=== PATIENT | male | born 1985 | race Caucasian/White ===

== ENCOUNTER 2020-10-18 14:23 | Emergency (ER) | payer OTHER ==
[~2020-10-18] VITALS: Ht 203.2 cm; Wt 132.0 kg
[~2020-10-18 14:23] MED LIST: AMOX875T PO
[2020-10-18 14:38] VITALS: BP 146/88
[2020-10-18] MEDS ORDERED: HYDROcodone/APAP 5/325MG 1 TAB TABLET PO ONE (14:45)
--- NOTE | 2020-10-18 14:50 | PHYS DOC ---
Past History Past Medical History: Other (LANI TRINH APRN) Past Surgical History: Tonsillectomy, Other (LANI TRINH APRN) Alcohol Use: Occasionally Drug Use: None (LANI TRINH APRN) General Adult EDM: Chief Complaint: BACK PAIN OR INJURY HPI: HPI: Patient is a 35-year-old male who presents to the ER today for generalized back pain. Patient reports that he injured his back at work on August 30 and was released to return to work on by Worker's Comp. He went back to work on Tuesday and he was supposed to be started on light duty but they started him on full duty and he has been working long hours and has had soreness in his back that he rates 8 out of 10. The pain does not radiate. He did not have any injury. 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 He denies any loss of bowel or bladder, saddle anesthesias, numbness or tingling in extremities. Patient states that in order for him to leave work early today he needed to be seen ER and have a work note. (LANI TRINH APRN) Review of Systems: Review of Systems: Constitutional: Denies fever or chills Eyes: Denies change in visual acuity HENT: Denies nasal congestion or sore throat Respiratory: Denies cough or shortness of breath Cardiovascular: Denies chest pain or edema GI: Denies abdominal pain, nausea, vomiting, bloody stools or diarrhea : Denies dysuria Musculoskeletal: Denies back pain or joint pain Integument: Denies rash Neurologic: Denies headache, focal weakness or sensory changes Endocrine: Denies polyuria or polydipsia Lymphatic: Denies swollen glands Psychiatric: Denies depression or anxiety (LANI TRINH APRN) Allergies: Allergies: Allergies Coded Allergies Type Severity Reaction Last Updated Verified No Known Drug Allergies 08/16/14 No (LANI TRINH APRN) Physical Exam: PE: Constitutional: Well developed, well nourished, no acute distress, non-toxic appearance. [] HENT: Normocephalic, atraumatic Eyes: PERRL, conjunctiva normal, no discharge. [] Neck: Normal range of motion, no bony spinal tenderness, supple, no stridor. [] Cardiovascular: Normal peripheral perfusion Lungs & Thorax: Normal work of breathing, no tachypnea Abdomen: Bowel sounds normal, soft, no tenderness, no masses, no pulsatile masses. [] Skin: Warm, dry, no erythema, no rash. [] Back: No bony spinal tenderness, no CVA tenderness. [] Extremities: No tenderness, no cyanosis, no clubbing, ROM intact, no edema. [] Neurologic: Alert and oriented X 3, normal motor function, normal sensory function, no focal deficits noted. [] Psychologic: Affect normal, judgement normal, mood normal. [] (LANI TRINH APRN) Current Patient Data: Vital Signs: Vital Signs Date Time Temp Pulse Resp B/P (MAP) Pulse Ox O2 Delivery O2 Flow Rate FiO2 10/18/20 14:38 98.5 71 16 146/88 97 Room Air (LANI TRINH APRN) EKG: EKG: [] (LANI TRINH APRN) Radiology/Procedures: Radiology/Procedures: [] (LANI TRINH APRN) Heart Score: C/O Chest Pain: No Risk Factors: Risk Factors: DM, Current or recent (<one month) smoker, HTN, HLP, family history of CAD, obesity. Risk Scores: Score 0 - 3: 2.5% MACE over next 6 weeks - Discharge Home Score 4 - 6: 20.3% MACE over next 6 weeks - Admit for Clinical Observation Score 7 - 10: 72.7% MACE over next 6 weeks - Early Invasive Strategies (LANI TRINH APRN) Course & Med Decision Making: Course & Med Decision Making Pertinent Labs and Imaging studies reviewed. (See chart for details) [] Patient is a 35-year-old male coming in for chronic generalized back pain from a previous injury. Patient denies any new injury. Patient was treated in the ER for his pain. Patient was given work note for leaving work early today. Patient advised to take Tylenol/ibuprofen for his pain at home. Patient advised to follow-up with his work comp doctor regarding his back pain. Patient is agreeable to care plan. (LANI TRINH APRN) Dragon Disclaimer: Dragon Disclaimer: This electronic medical record was generated, in whole or in part, using a voice recognition dictation system. (LANI TRINH APRN) Departure Departure: Impression: Primary Impression: Back pain Qualified Codes: M54.9 - Dorsalgia, unspecified; G89.29 - Other chronic pain Disposition: 01 HOME / SELF CARE / HOMELESS Condition: GOOD Referrals: WAYNE HARO MD (PCP) Patient Instructions: Back Pain, Adult Additional Instructions: You were seen in the ER today for generalized back soreness from a previous work injury. You were treated for your pain in the ER. As we discussed, you need to follow-up with your work comp doctor regarding further treatment for your back pain. You were given a work note to return to light duty and increase activity as tolerated. Continue taking Tylenol or ibuprofen for pain. If you develop worsening of your back pain, loss of bowel or bladder, numbness or tingling in your extremities please return to the ER immediately. EMERGENCY DEPARTMENT GENERAL DISCHARGE INSTRUCTIONS Thank you for coming to [facility] (ED) today and trusting us with you care. We trust that you had a positivie experience in our Emergency Department. If you wish to speak to the department management, you may call the director at [phone]. YOUR FOLLOW UP INSTRUCTIONS ARE FOLLOWS: 1. Do you have a private Doctor? If you do not have a private doctor, please ask for a resource list of physicians or clinics that may be able to assist you with follow up care. 2. The Emergency Physician has interpreted your x-rays. The X-Ray specialist will also review them. If there is a change in the findings, you will be notified in 48 hours when at all possible. 3. A lab test or culture has been done, your results will be reviewed and you will be notified if you need a change in treatment. ADDITIONAL INSTRUCTIONS AND INFORMATION: 1. Your care today has been supervised by a physician who is specially trained in emergency care. Many problems require more than one evaluation for a complete diagnosis and treatment. We recommend that you schedule your follow up appointment as recommended to ensure complete treatment of you illness or injury. If you are unable to obtain follow up care and continue to have a problem, or if your condition worsens, we recommend that you return to the ED. 2. We are not able to safely determine your condition over the phone nor are we able to give sound medical advice over the phone. For these safety reasons, if you call for medical advice we will ask you to come to the ED for further evaluation. 3. If you have any questions regarding these discharge instructions please call the ED at [phone]. SAFETY INFORMATION: In the interest of safety, wellness, and injury prevention; we encourage you to wear your sealbelt, if you smoke; quite smoking, and we encourage family to use a protective helmet for bicycling and other sporting events that present an increased risk for head injury. IF YOUR SYMPTOMS WORSEN OR NEW SYMPTOMS DEVELOP, OR YOU HAVE CONCERNS ABOUT YOUR CONDITION; OR IF YOUR CONDITION WORSENS WHILE YOU ARE WAITING FOR YOUR FOLLOW UP APPOINTMENT; EITHER CONTACT YOUR PRIMARY CARE DOCTOR, THE PHYSICIAN WHOSE NAME AND NUMBER YOU WERE GIVEN, OR RETURN TO THE ED IMMEDIATELY. Attending Signature Attending Signature I have participated in the care of this patient and I have reviewed and agree with all pertinent clinical information above including history, exam, and recommendations. [] Miguel Vallecillo DO (MIGUEL VALLECILLO DO) LANI TRINH APRN Oct 18, 2020 14:50 MIGUEL VALLECILLO DO Oct 18, 2020 15:01
== END 2020-10-18 15:28 | disposition home or self-care (01) ==
LOC: ER 14:23
DX: M54.9 Dorsalgia, unspecified (principal)
CPT/HCPCS: 99282

== ENCOUNTER 2020-11-02 13:22 | Emergency (ER) | payer OTHER ==
[~2020-11-02] VITALS: Ht 203.2 cm; Wt 138.0 kg
[2020-11-02 13:33] VITALS: BP 151/99
[2020-11-02] MEDS ORDERED: ERYT1OIN3 LEFTEYE (14:30)
[2020-11-02] MEDS ORDERED: VALA10005 PO (14:30)
--- NOTE | 2020-11-02 14:31 | PHYS DOC ---
Past History Past Medical History: Other (FERNANDO CAREY APRN) Past Surgical History: Tonsillectomy, Other (FERNANDO CAREY APRN) Alcohol Use: Occasionally Drug Use: None (FERNANDO CAREY APRN) Adult General Chief Complaint Chief Complaint: EYE PROBLEMS HPI HPI Patient is a 35-year-old male who presents to the emergency department complaining of 3 stye infection to his left lower eyelid that has been ongoing for the past year. Patient states he usually goes to urgent care centers which have been prescribing him antibiotic eye ointment. States he gets some relief with the ointment but the infection has never really gone away. Patient denies any visual changes. Denies pain to the to the left eye or at the area of the stye infection, states it does not itch, reports the sensation is "it just feels like my eyes are under stress or are very tired if that makes any sense ". Patient reports a past medical history of type 2 diabetes, states he only takes Metformin for. Patient denies other rashes of the skin, denies history of herpes or oral lesions or lesions to the groin area. Denies sexually transmitted infection history. patient denies any other physical complaints or physical concerns. (FERNANDO CAREY APRN) Review of Systems Review of Systems 14 body systems of review of systems have been reviewed. See HPI for pertinent positives and negative responses, otherwise all other systems are negative, nonpertinent or noncontributory. Constitutional: Negative except as outlined in HPI above. Skin: Negative except as outlined in HPI above. Eyes: Negative except as outlined in HPI above. HENT: Negative except as outlined in HPI above. Respiratory: Negative except as outlined in HPI above. Cardiovascular: Negative except as outlined in HPI above. GI: Negative except as outlined in HPI above. : Negative except as outlined in HPI above. Musculoskeletal: Negative except as outlined in HPI above. Integument: Negative except as outlined in HPI above. Neurologic: Negative except as outlined in HPI above. Endocrine: Negative except as outlined in HPI above. Lymphatic: Negative except as outlined in HPI above. Psychiatric: Negative except as outlined in HPI above. (FERNANDO CAREY APRN) Allergies Allergies Allergies Coded Allergies Type Severity Reaction Last Updated Verified No Known Drug Allergies 08/16/14 No (FERNANDO CAREY APRN) Physical Exam Physical Exam Constitutional: Well developed, well nourished, no acute distress, non-toxic appearance. 35-year-old male in no apparent distress. HENT: Normocephalic, atraumatic. Eyes: Conjunctiva normal, no discharge. Visual acuity 20/25 OU, 20/25 OD, 20/25 OS. Full 6 cardinal movements, right eye, eyelids and surrounding structures within normal limits. Left eye with white sclera, no scleral edema, no conjunctivitis appreciated, no erythema or edema of the eyelids appreciated, patient does have 3 less white lesions with irregular borders measuring between 1 to 2 mm to the lower lateral inner eyelid, no drainage appreciated. No erythema around the lesions appreciated. No discoloration around white lesions. The white lesions have a central clearing/erosion, not vesicular in nature. No other lesions noted to the upper eyelid or lower eyelid other than what has been noted. Neck: Normal range of motion, no stridor. Cardiovascular: No cyanosis appreciated, distal cap refill less than 2 seconds. Lungs & Thorax: Patient is in no respiratory distress, no audible adventitious lung sounds appreciated. Abdomen: Nontender, no abnormalities noted. Skin: Warm, dry, no erythema, no rash. Back: No tenderness, no deformities. Extremities: No tenderness, no cyanosis, no clubbing, ROM intact, no edema. Neurologic: Alert and oriented X 3, normal motor function, normal sensory funct ion, no focal deficits noted. Psychologic: Affect normal, judgement normal, mood normal. (FERNANDO CAREY APRN) Current Patient Data Vital Signs Vital Signs Date Time Temp Pulse Resp B/P (MAP) Pulse Ox O2 Delivery O2 Flow Rate FiO2 11/02/20 13:33 98.3 80 16 151/99 95 (FERNANDO CAREY APRN) EKG EKG [] (FERNANDO CAREY APRN) Radiology/Procedures Radiology/Procedures [] (FERNANDO CAREY APRN) Heart Score C/O Chest Pain: No Risk Factors: Risk Factors: DM, Current or recent (<one month) smoker, HTN, HLP, family history of CAD, obesity. Risk Scores: Risk Factors: DM, Current or recent (<one month) smoker, HTN, HLP, family history of CAD, obesity. (FERNANDO CAREY APRN) Course & Med Decision Making Course & Med Decision Making Pertinent Labs and Imaging studies reviewed. (See chart for details) 35-year-old male, vital signs reviewed, presents to the emergency department with chief complaint of styes to his left lower eyelid for the past year. Physical examination concerning for stye versus viral lesions versus other infectious process. Discussed with patient will start on erythromycin ointment as this has provided relief for him in the past however we will also start a regimen of acyclovir, discussed with patient concerns of infectious process of the eyelid that has not been resolved and a year, strict follow-up with ophthalmology this week, will give ophthalmology recommendation to follow-up with, patient states he will call for appointment Tuesday. Reviewed with patient medications, their use, side effects, strict return to ER precautions or concerns. Patient is amenable to ED planning and discharge planning. Discussed with the patient all findings and diagnostic testing as well as the need to follow-up with their primary care provider for further evaluation and treatment or return to the ED if any new or worsening symptoms. Strict return precautions were also discussed at length, the patient voiced understanding and agreement with the discharge planning. The patient was nontoxic in appearance, in no apparent distress, and hemodynamically stable at the time of disposition. Diagnosis lesions of the eye, differential diagnosis stye versus chalazion versus viral infection versus malignant lesions (FERNANDO CAREY APRN) Dragon Disclaimer Dragon Disclaimer This electronic medical record was generated, in whole or in part, using a voice recognition dictation system. (FERNANDO CAREY APRN) Attending Co-Sign The patient was seen and interviewed as well as examined at the bedside. The chart was reviewed. The case was discussed. Agree with the plan of care. (KAYCE MELGOZA DO) Departure Departure: Impression: Primary Impression: Lesion of left lower eyelid Disposition: HOME / SELF CARE / HOMELESS Condition: GOOD Referrals: WAYNE HARO MD (PCP) MAIKEL MOURA DO Additional Instructions: You were seen today for an infection to your left lower eyelid. As we discussed I am concerned that this infection has been ongoing for a year or so. I am starting you on 2 prescriptions, one is the antibiotic ointment erythromycin, the other is an antiviral called acyclovir. Please take as directed. As we discussed at length, it is very important that you follow-up with an international account manager. I have recommended Dr. Moura for this however you may use any international account manager of your choice. Please call tomorrow for an appointment to be seen this week. Please return to the emergency department for worsening symptoms or other concerns. Thank you for visiting our Emergency Department. It was a pleasure taking care of you today in the emergency department and we appreciate you trusting us with your care. If any additional problems come up don't hesitate to return to visit us. Please follow up with your primary care provider so they can plan additional care if needed and know about the problem that you had. If symptoms worsen come back to the Emergency Department. Any concerning symptoms that start such as chest pain, shortness of air, weakness or numbness on one side of the body, running high fevers or any other concerning symptoms return to the ER. EMERGENCY DEPARTMENT GENERAL DISCHARGE INSTRUCTIONS Thank you for coming to [facility] (ED) today and trusting us with you care. We trust that you had a positivie experience in our Emergency Department. If you wish to speak to the department management, you may call the director at [phone]. YOUR FOLLOW UP INSTRUCTIONS ARE FOLLOWS: 1. Do you have a private Doctor? If you do not have a private doctor, please ask for a resource list of physicians or clinics that may be able to assist you with follow up care. 2. The Emergency Physician has interpreted your x-rays. The X-Ray specialist will also review them. If there is a change in the findings, you will be notified in 48 hours when at all possible. 3. A lab test or culture has been done, your results will be reviewed and you will be notified if you need a change in treatment. ADDITIONAL INSTRUCTIONS AND INFORMATION: 1. Your care today has been supervised by a physician who is specially trained in emergency care. Many problems require more than one evaluation for a complete diagnosis and treatment. We recommend that you schedule your follow up appointment as recommended to ensure complete treatment of you illness or injury. If you are unable to obtain follow up care and continue to have a problem, or if your condition worsens, we recommend that you return to the ED. 2. We are not able to safely determine your condition over the phone nor are we able to give sound medical advice over the phone. For these safety reasons, if you call for medical advice we will ask you to come to the ED for further evaluation. 3. If you have any questions regarding these discharge instructions please call the ED at [phone]. SAFETY INFORMATION: In the interest of safety, wellness, and injury prevention; we encourage you to wear your sealbelt, if you smoke; quite smoking, and we encourage family to use a protective helmet for bicycling and other sporting events that present an increased risk for head injury. IF YOUR SYMPTOMS WORSEN OR NEW SYMPTOMS DEVELOP, OR YOU HAVE CONCERNS ABOUT YOUR CONDITION; OR IF YOUR CONDITION WORSENS WHILE YOU ARE WAITING FOR YOUR FOLLOW UP APPOINTMENT; EITHER CONTACT YOUR PRIMARY CARE DOCTOR, THE PHYSICIAN WHOSE NAME AND NUMBER YOU WERE GIVEN, OR RETURN TO THE ED IMMEDIATELY. Scripts Valacyclovir Hcl (VALTREX) 1,000 Mg Tablet 1 TAB PO BID for eyelid infection for 7 Days, #14 TAB 0 Refills Prov: FERNANDO CAREY APRN 11/02/20 Erythromycin Base (ERYTHROMYCIN) 3.5 Gm Oint...g. 1 LAURIE LEFTGERRYE QID for eye infection, #3.[address] 1/2 inch ribbon to lower left eyelid 4 times a day for the next 7 days. Prov: FERNANDO CAERY APRN 11/02/20 FERNANDO CAREY APRN Nov 02, 2020 14:31 KAYCE MELGOZA DO Nov 04, 2020 15:26
== END 2020-11-02 14:36 | disposition home or self-care (01) ==
LOC: ER 13:22
DX: H02.89 Other specified disorders of eyelid (principal)
CPT/HCPCS: 99283

== ENCOUNTER 2021-01-21 06:46 | Emergency (ER) | payer OTHER ==
[~2021-01-21] VITALS: Ht 182.9 cm; Wt 135.0 kg
[~2021-01-21 06:46] MED LIST changes: +ERYT1OIN3 LEFTEYE; +VALA10005 PO
[2021-01-21 07:13] VITALS: BP 136/87
[2021-01-21] MEDS ORDERED: PRED20TA PO (08:00)
[2021-01-21] MEDS ORDERED: DOXY100C3 PO (08:02)
--- NOTE | 2021-01-21 08:02 | PHYS DOC ---
Past History Past Medical History: Other Past Surgical History: Tonsillectomy, Other Additional Past Surgical Histo: cyst on face Alcohol Use: Occasionally Drug Use: None General Adult EDM: Chief Complaint: SKIN RASH/ABSCESS HPI: HPI: Patient is a [age] year old [sex] who presents with [] Review of Systems: Review of Systems: Constitutional: Denies fever or chills Eyes: Denies change in visual acuity HENT: Denies nasal congestion or sore throat Respiratory: Denies cough or shortness of breath Cardiovascular: Denies chest pain or edema GI: Denies abdominal pain, nausea, vomiting, bloody stools or diarrhea : Denies dysuria Musculoskeletal: Denies back pain or joint pain Integument: Denies rash Neurologic: Denies headache, focal weakness or sensory changes Endocrine: Denies polyuria or polydipsia Lymphatic: Denies swollen glands Psychiatric: Denies depression or anxiety Current Medications: Current Meds: Current Medications Medications (Trade) Dose Ordered Sig/Radha Start Time Stop Time Status Last Admin Dose Admin Dexamethasone (Decadron) 10 mg 1X ONCE 01/21/21 07:45 01/21/21 07:53 DC Allergies: Allergies: Allergies Coded Allergies Type Severity Reaction Last Updated Verified No Known Drug Allergies 08/16/14 No Physical Exam: PE: Constitutional: Well developed, well nourished, no acute distress, non-toxic appearance. [] HENT: Normocephalic, atraumatic, bilateral external ears normal, oropharynx moist, no oral exudates, nose normal. [] Eyes: PERRLA, EOMI, conjunctiva normal, no discharge. [] Neck: Normal range of motion, no tenderness, supple, no stridor. [] Cardiovascular:Heart rate regular rhythm, no murmur [] Lungs & Thorax: Bilateral breath sounds clear to auscultation [] Abdomen: Bowel sounds normal, soft, no tenderness, no masses, no pulsatile masses. [] Skin: Warm, dry, no erythema, no rash. [] Back: No tenderness, no CVA tenderness. [] Extremities: No tenderness, no cyanosis, no clubbing, ROM intact, no edema. [] Neurologic: Alert and oriented X 3, normal motor function, normal sensory function, no focal deficits noted. [] Psychologic: Affect normal, judgement normal, mood normal. [] Current Patient Data: Vital Signs: Vital Signs Date Time Temp Pulse Resp B/P (MAP) Pulse Ox O2 Delivery O2 Flow Rate FiO2 01/21/21 07:13 99.5 71 20 136/87 (103) 96 Room Air EKG: EKG: [] Radiology/Procedures: Radiology/Procedures: [] Heart Score: Risk Factors: Risk Factors: DM, Current or recent (<one month) smoker, HTN, HLP, family history of CAD, obesity. Risk Scores: Score 0 - 3: 2.5% MACE over next 6 weeks - Discharge Home Score 4 - 6: 20.3% MACE over next 6 weeks - Admit for Clinical Observation Score 7 - 10: 72.7% MACE over next 6 weeks - Early Invasive Strategies Course & Med Decision Making: Course & Med Decision Making Pertinent Labs and Imaging studies reviewed. (See chart for details) [] Dragon Disclaimer: Dragon Disclaimer: This electronic medical record was generated, in whole or in part, using a voice recognition dictation system. Departure Departure: Impression: Primary Impression: Pruritic rash Disposition: HOME / SELF CARE / HOMELESS Condition: STABLE Referrals: WAYNE HARO MD (PCP) Patient Instructions: Rash, [id number], [place] Spotted Fever Additional Instructions: You are being tested for [place] Spotted Fever. Take steroids as prescribed. Watch your diet and blood sugars. Scripts Doxycycline Hyclate (DOXYCYCLINE HYCLATE) 100 Mg Capsule 1 CAP PO BID for Infection, #14 CAP Prov: FERNANDO JERONIMO DO 01/21/21 Prednisone (PREDNISONE) 20 Mg Tablet 2 TAB PO DAILY for Rash, #8 TAB Start this prescription tomorrow, 01/22/21 Prov: FERNANDO JERONIMO DO 01/21/21 FERNANDO JERONIMO DO Jan 21, 2021 08:02
[2021-01-21] MEDS: DEXAMETHASONE 4 MG TABLET PO ONE (08:10)
[2021-01-21 08:23] LABS: BASO % 0 % (0-3); EOS # 0.2 x10^3/uL (0.0-0.7); EOS % 4 % (0-3); HEMOGLOBIN 15.9 g/dL (13.0-17.5); LYMPH # 1.5 x10^3/uL (1.0-4.8); LYMPH % 22 % (24-48); MEAN CORPUSCULAR HEMOGLOBIN 29 pg (25-35); MEAN CORPUSCULAR HGB CONC 34 g/dL (31-37); MEAN CORPUSCULAR VOLUME 87 fL (79-100); MONO # 0.7 x10^3/uL (0.0-1.1); MONO % 10 % (0-9); NEUT # 4.4 x10^3uL (1.8-7.7); NEUT % 64 % (31-73); PLATELET COUNT 185 x10^3/uL (140-400); RED BLOOD COUNT 5.43 x10^6/uL (4.30-5.70); WHITE BLOOD COUNT 6.9 x10^3/uL (4.0-11.0)
[2021-01-21 08:28] LABS: CALCIUM 8.5 mg/dL (8.5-10.1); CREATININE 0.7 mg/dL (0.7-1.3); GFR 127.6; POTASSIUM 3.8 mmol/L (3.5-5.1)
[2021-01-23 11:15] LABS: ROCK MTN SF IGG Positive (Negative); ROCKY MTN SF IGM 0.37 index (0.00-0.89)
== END 2021-01-21 08:12 | disposition home or self-care (01) ==
LOC: ER 06:46
DX: L29.9 Pruritus, unspecified (principal)
CPT/HCPCS: 36415; 80048; 85025; 86757; 99283; J8540

== ENCOUNTER 2021-03-24 09:32 | Emergency (ER) | payer OTHER ==
[~2021-03-24] VITALS: Ht 182.9 cm; Wt 135.0 kg
[~2021-03-24 09:32] MED LIST changes: +DOXY100C3 PO; +PRED20TA PO
[2021-03-24 09:40] VITALS: BP 144/84
[2021-03-24] MEDS ORDERED: ERYT1OIN3 OS (10:27)
--- NOTE | 2021-03-24 10:28 | PHYS DOC ---
Past History Past Medical History: Diabetes, Other Past Surgical History: Tonsillectomy, Other Additional Past Surgical Histo: cyst on face Smoking: Non-smoker Alcohol Use: None Drug Use: None General Adult EDM: Chief Complaint: EYE PROBLEMS HPI: HPI: Patient is a 35 year old male with history of type 2 diabetes who presents with left lower eyelid pain and swelling. He reports 3 "bumps" on the inner aspect of his left lateral lower eyelid with associated painful swelling and a scratching sensation to his eye. Patient states this happens every few months. He says that this is an intermittent ongoing issue, for which he has sought ophthalmic consult. He states he is supposed to have a procedure done to remove the capsule which the infection comes from, but scheduling is not allowed him to do so yet. He denies discharge, blurred vision, visual field deficits. Patient has no history of herpetic infection. He has used ophthalmic antibiotic eye ointment in the past with symptom relief. Review of Systems: Review of Systems: Constitutional: Denies fever or chills Eyes: See HPI HENT: Denies nasal congestion or sore throat Respiratory: Denies cough or shortness of breath Cardiovascular: Denies chest pain or edema Integument: Denies rash or other skin lesions Allergies: Allergies: Allergies Coded Allergies Type Severity Reaction Last Updated Verified No Known Drug Allergies 08/16/14 No Physical Exam: PE: Constitutional: Well developed, well nourished, no acute distress, non-toxic appearance. HENT: Normocephalic, atraumatic, bilateral external ears without deformity or discharge, oropharynx moist, no oral exudates, nose without deformity or discharge. Eyes: PERRLA, EOMI, right conjunctiva pink and moist, left conjunctiva erythematous with 3 punctate white clearing to the left lower eyelid approximately 0.5 mm in size each without vesicular rash, external left lower eyelid with swelling and tenderness, no discharge bilaterally. Neck: Normal range of motion, no tenderness, no lymphadenopathy. Cardiovascular: Heart rate regular rhythm, no murmur. Lungs & Thorax: Bilateral breath sounds clear to auscultation. Heart Score: C/O Chest Pain: No Course & Med Decision Making: Course & Med Decision Making Pertinent Labs and Imaging studies reviewed. (See chart for details) Patient is a 35-year-old male with history of diabetes who presents with left lower eyelid pain and swelling. This is almost exactly similar to prior episodes. He has sought ophthalmic evaluation, but has yet to schedule treatment. In the past, he has used antibiotic eye ointment. This does seem to relieve his symptoms. He will be provided with the same in the department today and instructed to schedule his ophthalmic procedure soon as possible. For any further concerns, he can follow-up with ophthalmology or return to the emergency department. Patient understands and is agreeable to discharge plan. Chai Disclaimer: Chai Disclaimer: This electronic medical record was generated, in whole or in part, using a voice recognition dictation system. Departure Departure: Impression: Primary Impression: Lesion of left lower eyelid Disposition: HOME / SELF CARE / HOMELESS Condition: STABLE Referrals: WAYNE HARO MD (PCP) Patient Instructions: Erythromycin eye ointment Additional Instructions: EMERGENCY DEPARTMENT GENERAL DISCHARGE INSTRUCTIONS Thank you for coming to [facility] (ED) today and trusting us with you care. We trust that you had a positive experience in our Emergency Department. If you wish to speak to the department management, you may call the director at [phone]. YOUR INSTRUCTIONS ARE FOLLOWS: 1. Your care today has been supervised by a physician who is specially trained in emergency care. Many problems require more than one evaluation for a complete diagnosis and treatment. We recommend that you schedule your follow up appointment as recommended to ensure complete treatment of you illness or injury. If you are unable to obtain follow up care and continue to have a problem, or if your condition worsens, we recommend that you return to the ED. 2. We are not able to safely determine your condition over the phone nor are we able to give sound medical advice over the phone. For these safety reasons, if you call for medical advice we will ask you to come to the ED for further evaluation. 3. If you have any questions regarding these discharge instructions please call the ED at [phone]. SAFETY INFORMATION: In the interest of safety, wellness, and injury prevention; we encourage you to wear your sealbelt, if you smoke; quite smoking, and we encourage family to use a protective helmet for bicycling and other sporting events that present an increased risk for head injury. IF YOUR SYMPTOMS WORSEN OR NEW SYMPTOMS DEVELOP, OR YOU HAVE CONCERNS ABOUT YOUR CONDITION; OR IF YOUR CONDITION WORSENS WHILE YOU ARE WAITING FOR YOUR FOLLOW UP APPOINTMENT; EITHER CONTACT YOUR PRIMARY CARE DOCTOR, THE PHYSICIAN WHOSE NAME AND NUMBER YOU WERE GIVEN, OR RETURN TO THE ED IMMEDIATELY. Scripts Erythromycin Base (Erythromycin) 1 Gm Oint...g. 1 GM OS QID for eye infection, #1 BOX Prov: SOPHIA GUDINO 03/24/21 SOPHIA GUDINO Mar 24, 2021 10:27
== END 2021-03-24 10:40 | disposition home or self-care (01) ==
LOC: ER 09:32
DX: H02.89 Other specified disorders of eyelid (principal); E11.9 Type 2 diabetes mellitus without complications
CPT/HCPCS: 99284

== ENCOUNTER 2021-05-15 22:55 | Emergency (ER) | payer OTHER ==
[~2021-05-15] VITALS: Ht 182.9 cm; Wt 135.0 kg
[~2021-05-15 22:55] MED LIST changes: +ERYT1OIN3 OS
--- NOTE | 2021-05-15 22:59 | PHYS DOC ---
Past History Past Medical History: Diabetes, Other Past Surgical History: Tonsillectomy, Other Additional Past Surgical Histo: cyst on face Smoking: Non-smoker Alcohol Use: Rarely Drug Use: None General Adult HPI: HPI: ".. I hut my back in August.. and I slipped on the ice.. on my step to my F150 this morning.. it hurts again on same side.. 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 Patient states he has had muscle spasm and back pain since the fall. Pain is primary on the left side. Does have some sciatica findings with straight leg lift on the left. Patient denies any problems with defecation or urination. Patient is ambulatory. No history of immunosuppression. No history of recent travel. No specific ill contacts. No history of IV drug use. No history of fever or chills. Patient normally follows with Dr. Michael. Any other injury in the fall. Review of Systems: Review of Systems: Constitutional: Denies fever or chills Eyes: Denies change in visual acuity HENT: Denies nasal congestion or sore throat Respiratory: Denies cough or shortness of breath Cardiovascular: Denies chest pain or edema GI: Denies abdominal pain, nausea, vomiting, bloody stools or diarrhea : Denies dysuria Musculoskeletal: Complains of lumbar sacral back pain Integument: Denies rash Neurologic: Denies headache, focal weakness or sensory changes Endocrine: Denies polyuria or polydipsia Lymphatic: Denies swollen glands Psychiatric: Denies depression or anxiety Family History: Family History: Noncontributory to presentation Current Medications: Current Meds: See nursing for home meds Allergies: Allergies: Allergies Coded Allergies Type Severity Reaction Last Updated Verified No Known Drug Allergies 08/16/14 No Physical Exam: PE: Constitutional: Moderate acute distress, non-toxic appearance. [] HENT: Normocephalic, atraumatic, bilateral external ears normal, oropharynx moist, no oral exudates, nose normal. [] Eyes: PERRLA, EOMI, conjunctiva normal, no discharge. [] Neck: Normal range of motion, no tenderness, supple, no stridor. [] Cardiovascular:Heart rate regular rhythm, no murmur [] Lungs & Thorax: Bilateral breath sounds clear to auscultation [] Abdomen: Bowel sounds normal, soft, no tenderness, no masses, no pulsatile masses. Mild obesity. Circumcised male. Testes descended. No saddle loss. Skin: Warm, dry, no erythema, no rash. [] Back: Number sacral tenderness, more tenderness on left lumbar sacral area, no CVA tenderness. [] Extremities: No tenderness, no cyanosis, no clubbing, ROM intact, no edema. No cording. Does have increased sciatic complaints of I do straight leg lift on the left. Neurologic: Alert and oriented X 3, normal motor function, normal sensory function, no focal deficits noted. [] Psychologic: Affect anxious, judgement normal, mood normal. [] EKG: EKG: [] Radiology/Procedures: Radiology/Procedures: [][place] [id number] IMAGING REPORT Signed PATIENT: RAJI TRINHUNT: [id number] : 1985 LOCATION: ER AGE: 36 SEX: M EXAM STATUS: REG ER ORD. PHYSICIAN: DANIAL BRANDON MD REASON: Fall while getting into truck this morning. PROCEDURE: CT LUMBAR SPINE WO CONTRAST PQRS Compliance Statement: One or more of the following individualized dose reduction techniques were utilized for this examination: 1. Automated exposure control 2. Adjustment of the mA and/or kV according to patient size 3. Use of iterative reconstruction technique CT LUMBAR SPINE WO 05/15/2021 11:37 PM Indication: Fall while getting into truck COMPARISON: None available. TECHNIQUE: Multiple axial CT images of the lumbar spine were obtained with intravenous contrast. Coronal and sagittal reformats are provided. FINDINGS: There is lumbarization of the first sacral segment with rudimentary disc at S1- S2. There are 6 nonrib-bearing lumbar type vertebral bodies with the sixth vertebral body named S1 for the purposes of this examination. Alignment of the lumbar spine is normal. Vertebral body heights are maintained. No acute fracture is identified. Transverse processes are intact. Abdominal aorta is normal in caliber. There is a horseshoe kidney. Sacrum is intact. Sacroiliac joints are well aligned. L3-L4: Mild disc bulge. Mild facet arthropathy. No neuroforaminal or spinal canal stenosis. L4-L5: There is a calcified right central disc protrusion. Mild facet arthropathy. Moderate bilateral neuroforaminal stenosis. Moderate spinal canal stenosis. L5-S1: There is a circumferential disc bulge with central disc extrusion. Moderate facet arthropathy. Severe bilateral neuroforaminal stenosis. Moderate spinal canal stenosis. IMPRESSION: 1. No acute fracture or malalignment of the lumbar spine. 2. Mild to moderate lumbar spondylosis as detailed above. Transitional anatomy identified at the lumbosacral junction. Is there is future surgical planning, recommend counting films of the entire spine. Electronically signed by: Beatriz Calvert MD (05/15/2021 11:59 PM) [facility] DICTATED AND SIGNED BY: BEATRIZ CALVERT MD DATE: 05/15/21 [id number] CC: WAYNE MICHAEL MD; DANIAL BRANDON MD ~MTH0 0 Heart Score: C/O Chest Pain: N/A Risk Factors: Risk Factors: DM, Current or recent (<one month) smoker, HTN, HLP, family history of CAD, obesity. Risk Scores: Score 0 - 3: 2.5% MACE over next 6 weeks - Discharge Home Score 4 - 6: 20.3% MACE over next 6 weeks - Admit for Clinical Observation Score 7 - 10: 72.7% MACE over next 6 weeks - Early Invasive Strategies Course & Med Decision Making: Course & Med Decision Making Pertinent Labs and Imaging studies reviewed. (See chart for details) Patient reports adequately relief of back pain with Toradol. Patient also received a shot of Depo Medrol 40. Ice packs as needed. Tylenol and Ibuprofen for pain. Take Flexeril 10 three times a day for muscles spasms. Follow up with primary. May need further eval. MRI with intrathecal contrast to fully evaluate spinal stenosis. No obvious fracture detected tonight. If a candidate for surgical treatment of spinal stenosis will need further films to of the entire spine. Impression: 1. Fall 2. Sciatica-left 3. Contusion 4. Lumbar spinal stenosis [] Dragon Disclaimer: Dragon Disclaimer: This electronic medical record was generated, in whole or in part, using a voice recognition dictation system. Departure Departure: Referrals: WAYNE MICHAEL MD (PCP) Scripts Cyclobenzaprine Hcl (CYCLOBENZAPRINE HCL) 10 Mg Tablet 10 MG PO TID PRN PRN for spasm, #30 TAB Prov: DANIAL BRANDON MD 05/16/21 Chai Disclaimer This chart was dictated in whole or in part using Voice Recognition software in a busy, high-work load, and often noisy Emergency Department environment. It may contain unintended and wholly unrecognized errors or omissions. Dragon Disclaimer This chart was dictated in whole or in part using Voice Recognition software in a busy, high-work load, and often noisy Emergency Department environment. It may contain unintended and wholly unrecognized errors or omissions. DANIAL BRANDON MD May 15, 2021 22:59
[2021-05-15 23:16] VITALS: BP 148/88
[2021-05-15] MEDS ORDERED: methylPREDNISolone ACETATE 40 MG/ML VIAL. IM ONE (23:45)
[2021-05-15] MEDS ORDERED: KETOROLAC 60 MG/2 ML VIAL. IM ONE (23:45)
--- NOTE | 2021-05-16 00:01 | RAD ---
PQRS Compliance Statement: One or more of the following individualized dose reduction techniques were utilized for this examinat ion: 1. Automated exposure control 2. Adjustment of the mA and/or kV according to patient size 3. Use of iterative reconstruction technique CT LUMBAR SPINE WO 05/15/2021 11:37 PM Indication: Fall while getting into truck COMPARISON: None available. TECHNIQUE: Multiple axial CT images of the lumbar spine were obtained with intravenous contrast. Ronaldo nal and sagittal reformats are provided. FINDINGS: There is lumbarization of the first sacral segment with rudimentary disc at S1-S2. There are 6 nonrib -bearing lumbar type vertebral bodies with the sixth vertebral body named S1 for the purposes of this examination. Alignment of the lumbar spine is normal. Vertebral body heights are maintained. No acut e fracture is identified. Transverse processes are intact. Abdominal aorta is normal in caliber. Ther e is a horseshoe kidney. Sacrum is intact. Sacroiliac joints are well aligned. L3-L4: Mild disc bulge. Mild facet arthropathy. No neuroforaminal or spinal canal stenosis. L4-L5: There is a calcified right central disc protrusion. Mild facet arthropathy. Moderate bilateral neuroforaminal stenosis. Moderate spinal canal stenosis. L5-S1: There is a circumferential disc bulge with central disc extrusion. Moderate facet arthropathy. Severe bilateral neuroforaminal stenosis. Moderate spinal canal stenosis. IMPRESSION: 1. No acute fracture or malalignment of the lumbar spine. 2. Mild to moderate lumbar spondylosis as detailed above. Transitional anatomy identified at the lumb osacral junction. Is there is future surgical planning, recommend counting films of the entire spine. Electronically signed by: Paradise Vieyra MD (05/15/2021 11:59 PM) [facility]
[2021-05-16] MEDS ORDERED: CYCL10TA19 PO (01:17)
== END 2021-05-16 01:21 | disposition home or self-care (01) ==
LOC: ER 22:55
DX: S30.0XXA Contusion of lower back and pelvis, initial encounter (principal); M48.061 Spinal stenosis, lumbar region without neurogenic claudication; M54.42 Lumbago with sciatica, left side; E11.9 Type 2 diabetes mellitus without complications; W01.0XXA Fall on same level from slipping, tripping and stumbling without subsequent striking against object, initial encounter; Y93.89 Activity, other specified; Y92.89 Other specified places as the place of occurrence of the external cause; Y99.8 Other external cause status
CPT/HCPCS: 72131; 96372; 99284; J1030; J1885